=== PATIENT | female | born 1960 | race Caucasian/White ===

== ENCOUNTER → 2017-05-09 | Outpatient (CLI) | payer MEDICARE, OTHER ==
[~2017-05-09] MED LIST: ASPIR 8181 MG PO; AVONEX; BACTRIM DS TAB1 EACH PO; BENADRYL25 MG PO; BETHANECHOL CHL50 MG PO; BISACODYL SUPP10 MG RECTAL; CENTRUM SILVER1 EAC5 PO; CINNAMON PO; CIPROFLOXACIN500 M1 PO; COPAXONE; COPAXONE SUBQ; CRANBERRY500 M1 PO; CURCUMIN PO; FISH OIL 1,001000 M2 PO; FISH OIL 1,001000 MG PO; FLUOXETINE PO; GLYCOLAX POWDER17 G1 PO; HYDROCODON-ACE1 EAC7 PO; HYDROCODON-ACE1 EAC8 PO; HYDROCODONE-AP1 EA11 PO; KEFLEX500 M1 PO; LASIX 20 MG TAB20 MG PO; LINZESS145 MCG PO; LIORESAL 10 MG10 MG PO; MEDROLDOSEPACK PO; MIRALAX17 GM PO; MOVANTIK25 MG PO; MS CONTIN15 MG PO; NABUMETONE 750750 M1 PO; NEURONTIN 300M300 M2 PO; NEURONTIN600 MG PO; NORCO 10-325 T1 EAC1 PO; NORCO 5-325 TA1 EACH PO; NORCO 7.5-3251 EACH PO; OMEPRAZOLE40 MG PO; OXYBUTYNIN 5 MG5 M1 PO; OXYBUTYNIN 5 MG5 M2 PO; PRILOSEC40 MG PO; PRINIVIL5 MG PO; PROVIGIL 100 M100 M1 PO; PROVIGIL 200 M200 MG PO; PROZAC10 MG PO; RED YEAST RICE600 MG PO; REQUIP 1 MG TABL1 M1 PO; REQUIP XL2 MG PO; REQUIP0.5 MG PO; REQUIP1 MG PO; SUPER B COMPLE1 EAC2; SUPER B-COMPLE1 EAC2 PO; TECFIDERA240 MG PO; TRAMADOL 50 MG50 MG PO; TURMERIC PO; VITAMIN D3
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
== END ==
LOC: M.PC 01:33
DX: G35 Multiple sclerosis (principal); M79.2 Neuralgia and neuritis, unspecified; Z79.899 Other long term (current) drug therapy

== ENCOUNTER → 2017-07-11 | Outpatient (CLI) | payer MEDICARE, OTHER ==
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
== END ==
LOC: M.PC 03:58
DX: M79.2 Neuralgia and neuritis, unspecified (principal); G35 Multiple sclerosis; M54.5 Low back pain; M79.604 Pain in right leg; Z79.899 Other long term (current) drug therapy

== ENCOUNTER 2017-08-09 16:34 | Emergency (ER) | payer MEDICARE, OTHER ==
[~2017-08-09] VITALS: Ht 172.7 cm; Wt 99.3 kg
[~2017-08-09 16:34] MED LIST changes: -HYDROCODONE-AP1 EA11 PO; -KEFLEX500 M1 PO; -LASIX 20 MG TAB20 MG PO; -NORCO 5-325 TA1 EACH PO; -OMEPRAZOLE40 MG PO; -OXYBUTYNIN 5 MG5 M2 PO
[2017-08-09 17:16] LABS: ABSOLUTE EOSINOPHILS 0.1 thou/uL (0.0-0.7); ABSOLUTE MONOCYTES 0.4 thou/uL (0.0-1.2); ABSOLUTE NEUTROPHILS 3.1 thou/uL (1.6-8.1); BASOPHILS 0.8 %; EOSINOPHILS 2.7 %; HEMATOCRIT 39.1 % (37.0-47.0); LYMPHOCYTES 21.9 %; MCH 30.9 pg (26.0-34.0); MCHC 33.3 g/dL (28.0-37.0); MCV 92.9 fL (80.0-100.0); MONOCYTES 8.9 %; MPV 9.3 fl. (7.2-11.1); NUCLEATED RBCS 0 /100WBC; PLATELET COUNT* 188 thou/uL (150-400); POLYS 65.7 %; RBC 4.21 mil/uL (4.20-5.00); RDW-CV 13.9 % (10.5-14.5); WBC 4.7 thou/uL (4.0-11.0)
[2017-08-09 17:19] LABS: ANION GAP 5 mmol/L (7-16); BUN 27 mg/dL (7-18); CALCIUM 9.2 mg/dL (8.5-10.1); CHLORIDE 104 mmol/L (98-107); CO2 32 mmol/L (21-32); CREATININE 0.9 mg/dL (0.6-1.3); GLUCOSE 96 mg/dL (70-99); POTASSIUM 3.8 mmol/L (3.5-5.1); SODIUM 141 mmol/L (136-145)
[2017-08-09 17:31] LABS: ALBUMIN 3.5 g/dL (3.4-5.0); ALKALINE PHOSPHATASE 122 U/L (46-116); NT-PRO BRAIN NAT PEPTIDE 85 pg/mL (<300); SGOT 24 U/L (15-37); SGPT 32 U/L (30-65); TOTAL BILIRUBIN 0.3 mg/dL (<0.1-1.0); TOTAL PROTEIN 7.2 g/dL (6.4-8.2); TROPONIN-I LEVEL <0.06 ng/mL (<0.06)
[2017-08-09] MEDS ORDERED: KEFLEX500 M1 PO (20:37)
[2017-08-09] MEDS ORDERED: LASIX 20 MG TAB20 MG PO (20:37)
[2017-08-09 21:20] VITALS: BP 136/73
--- NOTE | 2017-08-10 13:51 | EKG ---
[place] [address] ELECTROCARDIOGRAM REPORT Name: EDWARDO BOOTH [id number] Admission: 08/09/17 Attend Phys: Discharge: 08/09/17 Date of : 60 Report #: [id number] THIS REPORT FOR: //name// [facility] ED Test Date: 2017-08-09 Test Time: 17:14:50 Pat Name: EDWARDO BOOTH Department: Room: Gender: F Dice Maker: Elizabeth FAROOQ : 1960 Requested By: Abbey Preciado Order Number: [id number] MD: Yousif Blair Measurements Intervals Mcgrann Rate: 74 P: 64 FL: 174 QRS: 78 QRSD: 96 T: 59 QT: 385 QTc: 428 Interpretive Statements Sinus rhythm No previous ECG available for comparison Electronically Signed On 08-10-2017 13:51:26 CDT by Yousif Blair [email or web address] <ELECTRONICALLY SIGNED> By: Yousif Blair MD, [facility] 08/10/17 1351 1714 1714 Yousif Blair MD, FACC /EPI
[2017-12-20] MEDS ORDERED: NEURONTIN600 MG PO (08:16)
[2017-12-20] MEDS ORDERED: LASIX 20 MG TAB20 MG PO (08:16)
[2017-12-20] MEDS ORDERED: NABUMETONE 750750 M1 PO (08:16)
[2017-12-20] MEDS ORDERED: KEFLEX500 M1 PO (08:16)
[2017-12-20] MEDS ORDERED: TRAMADOL 50 MG50 MG PO (08:16)
[2017-12-20] MEDS ORDERED: REQUIP 1 MG TABL1 M1 PO (08:16)
[2017-12-20] MEDS ORDERED: HYDROCODONE-AP1 EA11 PO (13:18)
[2017-12-20] MEDS ORDERED: OMEPRAZOLE40 MG PO (13:37)
[2017-12-20] MEDS ORDERED: NORCO 5-325 TA1 EACH PO (13:38)
[2017-12-20] MEDS ORDERED: OXYBUTYNIN 5 MG5 M2 PO (13:38)
== END 2017-08-09 21:21 | disposition home or self-care (01) ==
LOC: M.ERS 16:34
PROVIDERS: Nurse Practitioner Family
DX: L03.115 Cellulitis of right lower limb (principal); R06.00 Dyspnea, unspecified; R60.9 Edema, unspecified

== ENCOUNTER → 2017-08-09 | Outpatient (CLI) | payer MEDICARE, OTHER | LOC: M.ULTRA 11:20 | DX: M79.661 Pain in right lower leg (principal); M79.89 Other specified soft tissue disorders ==

== ENCOUNTER → 2017-12-20 | Outpatient (CLI) | payer MEDICARE, OTHER ==
[~2017-12-20] MED LIST changes: +HYDROCODONE-AP1 EA11 PO; +KEFLEX500 M1 PO; +LASIX 20 MG TAB20 MG PO; +NORCO 5-325 TA1 EACH PO; +OMEPRAZOLE40 MG PO; +OXYBUTYNIN 5 MG5 M2 PO
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
== END ==
LOC: M.PC 02:51
DX: G35 Multiple sclerosis (principal); E11.9 Type 2 diabetes mellitus without complications; F32.9 Major depressive disorder, single episode, unspecified; M41.9 Scoliosis, unspecified; G25.81 Restless legs syndrome; Z86.69 Personal history of other diseases of the nervous system and sense organs; K63.9 Disease of intestine, unspecified

== ENCOUNTER → 2018-04-16 | Outpatient (CLI) | payer OTHER ==
[~2018-04-16] MED LIST changes: +METHENAMINE1 GM PO
--- NOTE | 2018-04-17 09:41 | PAINCON ---
[address] [address] PAIN MANAGEMENT CONSULTATION Name: EDWARDO BOOTHN [facility] Sims#: [id number] Admission: 04/16/18 Attend Phys: Alfredo Buchanan MD Discharge: Date of : 60 Report #: [id number] THIS REPORT FOR: //name// CC: Jazmine Buchanan DATE OF SERVICE: 04/16/2018 CHIEF COMPLAINT: Here for medication. HISTORY: The patient is a 58-year-old female who has been followed in the pain clinic because of chronic pain. As you know, she suffers from neurogenic pain secondary to multiple sclerosis. She has some coaxial back pain. She has been treated with chronic opioid medications. She feels that these medications have been helpful. She feels that gabapentin, tramadol and hydrocodone are beneficial. She has returned today for renewal of her medication. She fell while coming into the pain clinic. States that her wheelchair, has a low hanging support for her feet. These hit the sidewalk and tipped her. She is not injured. She has not sought medical treatment. She recently had some surgery in her mouth. Had some tooth pain in February. This feels to be better at this juncture. Cold weather has caused some problems secondary to the snow and ice that has been experiencing. She feels that the Requip continues to be helpful with her restless legs. She rates her pain as 2/10 at this point. She would like to continue with her medications. ALLERGIES: No known drug allergies. CURRENT MEDICATIONS: Aspirin 81 mg, baclofen 10 mg t.i.d., bethanechol 50 mg, Dulcolax 10 mg suppository at bedtime, cinnamon supplement 1000 mg daily, cranberry 500 mg, Benadryl 25 mg q. 6 hours, fish oil 1000 mg, Prozac 10 mg, Neurontin 600 mg t.i.d., hydrocodone 7.5 mg q.i.d., Linzess 145 mg, Prinivil 5 mg, Provigil 100 mg, multivitamin, Relafen 750 mg b.i.d., GlycoLax powder, red yeast extract, Requip 10 mg, Bactrim-DS 1 tab every 12 hours, tramadol 50 mg q. 6 hours p.r.n., vitamin B complex, Copaxone 3 times weekly, turmeric with curcumin 1 tab. PAIN CLINIC ASSESSMENT/PQRS: 1. Osteoarthritis. The patient is not being treated for osteoarthritis or rheumatoid arthritis. 2. Height 5 feet 8 inches, weight is 212 pounds. 3. Vital Signs: Blood pressure 121/73, heart rate 70, respiratory rate 16, room air saturation is 95% and temperature 97.7. 4. Pain intensity of 2/10. 5. Fall risk. The patient did fall coming into the pain clinic today. She states that she was not hurt. She does use a wheelchair. 6. Blood thinner. The patient is not on a blood [place] [address] PAIN MANAGEMENT CONSULTATION Name: EDWARDO BOOTH Room: [facility]#: [id number] Admission: 04/16/18 Attend Phys: Alfredo Buchanan MD Discharge: Date of : 60 Report #: [id number] 7. Hypertension. The patient is being treated for hypertension. 8. Opioid greater than 6 weeks. The patient receives her medication from one source, [facility]. 9. Risk assessment tool, low for opioid use. 10. Functional assessment tool. 11. Recreational drug use. The patient denies use of recreational drugs. 12. Tobacco: The patient denies use of tobacco. 13. Alcohol: The patient denies use of alcoholic beverages other than on a monthly basis. PHYSICAL EXAMINATION: GENERAL: The patient is a well-developed, well-nourished white female. Appears stated age. She is alert and oriented x 3. Affect is appropriate. Speech is fluent. HEENT: Normocephalic, atraumatic. Extraocular eye muscles intact. Sclerae nonicteric. Mucous membranes are moist. NECK: With reasonably good range of motion. HEART: Regular rate. ABDOMEN: Protuberant, nontender. EXTREMITIES: Upper extremity muscle strength is judged to be 5/5 for the major muscle groups in the upper extremity. Lower extremity muscle strength is judged to be of 4-/5. The patient is able to extend her right leg. She has weakness secondary to multiple sclerosis. IMPRESSION: 1. Multiple sclerosis. 2. Restless legs syndrome. 3. Hypertension. RECOMMENDATIONS: We discussed treatment options with the patient. We will continue with her current medical management. She feels that her medications are helpful. She has had no problem with them. A script for hydrocodone 7.5 mg 1 p.o. q. 4-6 hours, #120 tablets have been written for next 3 months. The patient will continue with gabapentin 600 mg 1 p.o. t.i.d. 3 months of this medication has been provided. Requip 1 tablet t.i.d. 1 mg has been written. Tramadol q. 6 hours p.r.n also been supplied. The patient will call us if she has any concerns. Overall, she feels reasonably happy and things are going reasonably well. We would like to thank you for letting us participate in her care. We hope she continues to improve. <ELECTRONICALLY SIGNED> By: Alfredo Buchanan MD 04/17/18 0941 [id number]. Cy Buchanan MD /nt
== END ==
LOC: M.PC 08:20
DX: G35 Multiple sclerosis (principal); I10 Essential (primary) hypertension; G25.81 Restless legs syndrome; Z79.899 Other long term (current) drug therapy

== ENCOUNTER 2018-04-24 15:47 | Inpatient (IN) | payer OTHER ==
[~2018-04-24] VITALS: Ht 172.7 cm; Wt 100.7 kg
[2018-04-24 16:03] VITALS: BP 116/55
[2018-04-24] MEDS ORDERED: COPAXONE40 MG/1 ML SUBQ (16:11)
[2018-04-24] MEDS ORDERED: PROZAC20 MG PO (16:14)
[2018-04-24 16:50] LABS: ABSOLUTE EOSINOPHILS 0.2 thou/uL (0.0-0.7); ABSOLUTE LYMPHOCYTES 1.1 thou/uL (0.8-5.3); ABSOLUTE MONOCYTES 0.3 thou/uL (0.0-1.2); ABSOLUTE NEUTROPHILS 2.8 thou/uL (1.6-8.1); BASOPHILS 0.6 %; EOSINOPHILS 4.3 %; HEMATOCRIT 39.3 % (37.0-47.0); HEMOGLOBIN 12.9 gm/dL (12.0-15.0); MCH 30.2 pg (26.0-34.0); MCHC 32.9 g/dL (28.0-37.0); MCV 91.8 fL (80.0-100.0); MONOCYTES 7.8 %; NUCLEATED RBCS 0 /100WBC; PLATELET COUNT* 232 thou/uL (150-400); POLYS 63.3 %; RBC 4.28 mil/uL (4.20-5.00); RDW-CV 13.9 % (10.5-14.5); WBC 4.5 thou/uL (4.0-11.0)
[2018-04-24 17:07] LABS: ALBUMIN 3.2 g/dL (3.4-5.0); CALCIUM 9.3 mg/dL (8.5-10.1); CREATININE 0.9 mg/dL (0.6-1.3); MAGNESIUM 2.2 mg/dL (1.8-2.4); POTASSIUM 4.2 mmol/L (3.5-5.1); TOTAL BILIRUBIN 0.2 mg/dL (<0.1-1.0); TOTAL PROTEIN 7.2 g/dL (6.4-8.2)
[2018-04-24 18:40] LABS: URINE BILIRUBIN NEGATIVE (Negative); URINE BLOOD 2+ (Negative); URINE CLARITY CLEAR; URINE COLOR YELLOW; URINE GLUCOSE-RANDOM NEGATIVE (Negative); URINE KETONES NEGATIVE (Negative); URINE PROTEIN TRACE (Negative); URINE UROBILINOGEN 0.2 E.U./dl (0.2-1.0)
[2018-04-24 18:42] LABS: URINE LEUKOCYTES-REFLEX 2+ (Negative); URINE NITRITE-REFLEX POSITIVE (Negative)
[2018-04-24 18:56] LABS: BACTERIA-REFLEX None Seen /HPF (None Seen); CASTS None Seen /LPF (None Seen); CRYSTALS None Seen /LPF (None Seen); SQUAMOUS 0-3 Few /LPF (0-3); URINE RBC None Seen /HPF (0-2); URINE WBC-REFLEX 0-5 Rare /HPF (0-5)
[2018-04-24 19:21] VITALS: BP 116/55
[2018-04-24 19:45] VITALS: BP 137/78
[2018-04-25 05:00] VITALS: BP 105/42
[2018-04-25 05:26] LABS: HEMATOCRIT 38.5 % (37.0-47.0); HEMOGLOBIN 12.8 gm/dL (12.0-15.0); MCH 30.2 pg (26.0-34.0); MCHC 33.2 g/dL (28.0-37.0); MPV 9.1 fl. (7.2-11.1); RBC 4.23 mil/uL (4.20-5.00); RDW-CV 13.8 % (10.5-14.5); WBC 4.7 thou/uL (4.0-11.0)
[2018-04-25 05:52] LABS: CALCIUM 9.4 mg/dL (8.5-10.1); CREATININE 0.8 mg/dL (0.6-1.3); POTASSIUM 3.9 mmol/L (3.5-5.1)
[2018-04-25] MEDS ORDERED: NYAMYC15 GM TOP (07:39)
[2018-04-25 08:15] VITALS: BP 125/68
[2018-04-25] MEDS ORDERED: REQUIP 1 MG TABL1 M1 PO (11:57)
[2018-04-25] MEDS ORDERED: ROPINIROLE HCL2 MG PO (11:58)
[2018-04-25 16:42] VITALS: BP 110/54
[2018-04-25 20:00] VITALS: BP 111/60
[2018-04-26 04:15] LABS: CALCIUM 9.5 mg/dL (8.5-10.1); CREATININE 1.1 mg/dL (0.6-1.3); MAGNESIUM 2.1 mg/dL (1.8-2.4)
[2018-04-26 08:15] VITALS: BP 115/64
[2018-04-26 15:58] VITALS: BP 112/72
[2018-04-26 20:00] VITALS: BP 134/63
[2018-04-27 04:46] LABS: HEMATOCRIT 36.3 % (37.0-47.0); HEMOGLOBIN 12.1 gm/dL (12.0-15.0); MCH 30.1 pg (26.0-34.0); MCHC 33.2 g/dL (28.0-37.0); MCV 90.7 fL (80.0-100.0); MPV 9.5 fl. (7.2-11.1); RDW-CV 13.9 % (10.5-14.5); WBC 8.4 thou/uL (4.0-11.0)
[2018-04-27 05:05] LABS: ALBUMIN 2.9 g/dL (3.4-5.0); CALCIUM 9.3 mg/dL (8.5-10.1); CREATININE 0.9 mg/dL (0.6-1.3); POTASSIUM 3.9 mmol/L (3.5-5.1); TOTAL BILIRUBIN 0.1 mg/dL (<0.1-1.0); TOTAL PROTEIN 6.6 g/dL (6.4-8.2)
[2018-04-27 09:00] VITALS: BP 136/53
[2018-04-27 16:00] VITALS: BP 119/56
[2018-04-27 21:20] VITALS: BP 131/76
[2018-04-28 04:08] LABS: HEMATOCRIT 37.5 % (37.0-47.0); HEMOGLOBIN 12.5 gm/dL (12.0-15.0); MCH 30.3 pg (26.0-34.0); MCHC 33.4 g/dL (28.0-37.0); MCV 90.8 fL (80.0-100.0); RBC 4.14 mil/uL (4.20-5.00); WBC 7.7 thou/uL (4.0-11.0)
[2018-04-28 04:15] LABS: CALCIUM 9.5 mg/dL (8.5-10.1); CREATININE 0.8 mg/dL (0.6-1.3); MAGNESIUM 2.1 mg/dL (1.8-2.4); POTASSIUM 3.9 mmol/L (3.5-5.1)
[2018-04-28 09:39] VITALS: BP 127/71
[2018-04-28 15:27] VITALS: BP 130/77
[2018-04-29 09:00] VITALS: BP 125/76
[2018-04-29 16:00] VITALS: BP 121/60
[2018-04-29 22:00] VITALS: BP 141/75
[2018-04-30 08:20] VITALS: BP 132/78
[2018-04-30 16:45] VITALS: BP 113/62
[2018-04-30 22:30] VITALS: BP 144/77
[2018-05-01 08:10] VITALS: BP 123/58
[2018-05-01 08:13] VITALS: BP 144/77
[2018-05-01 09:42] VITALS: BP 123/58
[2018-05-01] MEDS ORDERED: MIRALAX17 GM PO (10:19)
[2018-05-01] MEDS ORDERED: MEDROL DOSPAK21 TA1 PO (14:39)
--- NOTE | 2018-05-03 10:16 | CON ---
[address] [address] CONSULTATION Name: EDWARDO BOOTH Room: [address] M.R.#: [id number] Admission: 04/24/18 Attend Phys: Sadi Aponte MD Discharge: 05/01/18 Date of : 60 Report #: [id number] THIS REPORT FOR: //name// CC: Sadi Greenberg DATE OF SERVICE: 04/25/2018 HISTORY OF PRESENT ILLNESS: This is a 58-year-old female patient who is well known to me. She has unfortunately severe multiple sclerosis. It has been stable, but several days ago, she started having difficulty with walking and from description, it looks like it is on the left side. She came to Emergency Room. She was evaluated there. She did not have any signs of infection as I understand. She was admitted with the weakness. This has been progressively becoming worst in the last couple of months, but now it has reached a point where her has to help a lot. She used to be on Tecfidera, but her lymphocyte count fell and she switched to Copaxone. REVIEW OF SYSTEMS: Indicate that she has had the MS since 1991. She has a restless leg syndrome. She had a known knee replacement. She has depression. This was the 14-point review of system. PAST MEDICAL HISTORY: Positive for MS. FAMILY HISTORY: Negative for early age stroke. SOCIAL HISTORY: She does not smoke. PHYSICAL EXAMINATION: Indicate she is alert. She is responsive. She has cognitive deficits, which are baseline. She may have a slight right facial palsy. She is weak in the left upper and left lower extremity, rather left lower extremity she barely moves. She said she does have a position sense there. Reflexes if anything is diminished in the lower extremities. Cardiac examinations appear noncontributory. No respiratory difficulty. Blood pressure is 125/68, pulse is 80, temperature is 97.9. LABORATORY DATA: Her white count is 4.7. Kidney function is normal and has always been. IMPRESSION: 1. Relapse of multiple sclerosis. 2. This patient appeared to have significantly progressed [place] [address] CONSULTATION Name: EDWARDO BOOTH Room: [address] [facility]#: [id number] Admission: 04/24/18 Attend Phys: Sadi Aponte MD Discharge: 05/01/18 Date of : 60 Report #: [id number] RECOMMENDATIONS: I discussed with the patient the situation again. I am going to go ahead and get a contrast MRI in this patient. We have avoided contrast in the past because she got contrast multiple times. I did discuss with her that it accumulates in the body, but whether it caused much of bad effects is not clear. She understands that. She wants to proceed with the contrast MRI. If I see enhancing lesion, I will change her disease modifying treatment probably to Gilenya. The problem with that is that it requires a lot of workup before we can start Gilenya and the patient has been reluctant to get that workup done and wanted to go on Copaxone. I will see if she qualifies for rehab because she gets pretty significantly weak and they may have to even train her for fall prevention techniques. We would like to give her steroids, looks like presently she is on 250 q.i.d. of steroids and I would like to give her as a single dose of 1 gram to have a better blood-brain penetration. All of it was discussed with the patient and I discussed the patient with the Emergency Room physician and the nurses. More than 50 minutes of time was spent taking care of this patient and majority of that time was spent counseling and coordinating her care. <ELECTRONICALLY SIGNED> By: Yuniel Raymundo MD 05/03/18 [id number] Raymundo MD /nt
== END 2018-05-01 14:05 | DRG 59 ==
LOC: M.ERS 15:47 → M.ORTHSURG 17:23 → M.TBA-ER 17:23 → M.ORTHSURG 19:27
PROVIDERS: Family Medicine; Physician Assistant; ADMIT Internal Medicine
DX: G35 Multiple sclerosis (principal); G72.81 Critical illness myopathy; E44.1 Mild protein-calorie malnutrition; G51.0 Bell's palsy; G25.81 Restless legs syndrome; F32.9 Major depressive disorder, single episode, unspecified; I10 Essential (primary) hypertension; N30.91 Cystitis, unspecified with hematuria; R73.9 Hyperglycemia, unspecified; E66.01 Morbid (severe) obesity due to excess calories; Z96.651 Presence of right artificial knee joint; Z68.33 Body mass index [BMI] 33.0-33.9, adult; Z98.891 History of uterine scar from previous surgery; Z79.899 Other long term (current) drug therapy

== ENCOUNTER 2018-05-01 10:09 | Inpatient (IN) | payer OTHER ==
[~2018-05-01] VITALS: Ht 172.7 cm; Wt 93.4 kg
[~2018-05-01 10:09] MED LIST changes: +COPAXONE40 MG/1 ML SUBQ; +NYAMYC15 GM TOP; +PROZAC20 MG PO; +ROPINIROLE HCL2 MG PO
[2018-05-01] MEDS ORDERED: MIRALAX17 GM PO (10:19)
[2018-05-01 14:00] VITALS: BP 146/87
[2018-05-01] MEDS ORDERED: MEDROL DOSPAK21 TA1 PO (14:39)
[2018-05-01 19:20] VITALS: BP 126/76
[2018-05-02 04:04] LABS: HEMATOCRIT 39.4 % (37.0-47.0); MCH 30.1 pg (26.0-34.0); MCV 91.3 fL (80.0-100.0); MPV 9.2 fl. (7.2-11.1); NUCLEATED RBCS 0 /100WBC; PLATELET COUNT* 212 thou/uL (150-400); RBC 4.31 mil/uL (4.20-5.00); RDW-CV 13.8 % (10.5-14.5); WBC 10.4 thou/uL (4.0-11.0)
[2018-05-02 04:28] LABS: CALCIUM 8.7 mg/dL (8.5-10.1); CREATININE 0.9 mg/dL (0.6-1.3); POTASSIUM 4.1 mmol/L (3.5-5.1)
[2018-05-02 05:54] LABS: ABSOLUTE LYMPHOCYTES 1.6 thou/uL (0.8-5.3); ABSOLUTE MONOCYTES 0.4 thou/uL (0.0-1.2); ABSOLUTE NEUTROPHILS 8.4 thou/uL (1.6-8.1); ANISOCYTOSIS 1+; PLATELET ESTIMATE ADEQUATE; POIKILOCYTOSIS 1+
[2018-05-02 09:46] VITALS: BP 124/78
[2018-05-02 20:00] VITALS: BP 125/49
[2018-05-03 04:27] LABS: ABSOLUTE EOSINOPHILS 0.1 thou/uL (0.0-0.7); ABSOLUTE LYMPHOCYTES 1.3 thou/uL (0.8-5.3); ABSOLUTE MONOCYTES 0.7 thou/uL (0.0-1.2); ABSOLUTE NEUTROPHILS 8.9 thou/uL (1.6-8.1); BASOPHILS 0.1 %; EOSINOPHILS 0.6 %; HEMATOCRIT 40.7 % (37.0-47.0); HEMOGLOBIN 13.5 gm/dL (12.0-15.0); LYMPHOCYTES 11.7 %; MCH 30.3 pg (26.0-34.0); MCHC 33.2 g/dL (28.0-37.0); MCV 91.1 fL (80.0-100.0); MONOCYTES 6.5 %; MPV 9.5 fl. (7.2-11.1); NUCLEATED RBCS 0 /100WBC; PLATELET COUNT* 232 thou/uL (150-400); POLYS 81.1 %; RBC 4.47 mil/uL (4.20-5.00); RDW-CV 13.7 % (10.5-14.5)
[2018-05-03 08:00] VITALS: BP 102/59
[2018-05-03 12:15] VITALS: BP 104/59
[2018-05-03 20:10] VITALS: BP 94/52
[2018-05-04 04:21] LABS: ABSOLUTE EOSINOPHILS 0.1 thou/uL (0.0-0.7); ABSOLUTE LYMPHOCYTES 1.5 thou/uL (0.8-5.3); ABSOLUTE MONOCYTES 0.8 thou/uL (0.0-1.2); BASOPHILS 0.1 %; EOSINOPHILS 0.9 %; HEMATOCRIT 41.1 % (37.0-47.0); HEMOGLOBIN 13.6 gm/dL (12.0-15.0); LYMPHOCYTES 14.6 %; MCHC 33.2 g/dL (28.0-37.0); MCV 90.6 fL (80.0-100.0); MONOCYTES 7.6 %; MPV 9.8 fl. (7.2-11.1); NUCLEATED RBCS 0 /100WBC; PLATELET COUNT* 242 thou/uL (150-400); POLYS 76.8 %; RDW-CV 14.3 % (10.5-14.5)
[2018-05-04 05:03] LABS: ABSOLUTE NEUTROPHILS 7.8 thou/uL (1.6-8.1); RBC 4.55 mil/uL (4.20-5.00); WBC 10.2 thou/uL (4.0-11.0)
[2018-05-04 06:42] VITALS: BP 104/49
[2018-05-04 07:30] VITALS: BP 107/42
[2018-05-04 20:00] VITALS: BP 112/57
[2018-05-05 08:08] VITALS: BP 102/57
[2018-05-05 20:00] VITALS: BP 158/80
[2018-05-06 07:36] VITALS: BP 91/62
[2018-05-06 20:00] VITALS: BP 108/60
[2018-05-07 07:10] VITALS: BP 109/64
[2018-05-07 20:00] VITALS: BP 115/60
[2018-05-08 08:08] VITALS: BP 98/52
[2018-05-08 19:38] VITALS: BP 108/67
[2018-05-09 08:00] VITALS: BP 115/54
[2018-05-09 09:30] VITALS: BP 123/68
[2018-05-09 20:00] VITALS: BP 114/64
[2018-05-10 08:10] VITALS: BP 97/55
[2018-05-10 10:15] VITALS: BP 114/54
[2018-05-10 19:50] VITALS: BP 119/56
[2018-05-11 04:17] LABS: ABSOLUTE EOSINOPHILS 0.2 thou/uL (0.0-0.7); ABSOLUTE LYMPHOCYTES 1.3 thou/uL (0.8-5.3); ABSOLUTE MONOCYTES 0.5 thou/uL (0.0-1.2); ABSOLUTE NEUTROPHILS 2.6 thou/uL (1.6-8.1); BASOPHILS 0.8 %; EOSINOPHILS 4.2 %; HEMATOCRIT 37.1 % (37.0-47.0); HEMOGLOBIN 12.6 gm/dL (12.0-15.0); LYMPHOCYTES 28.2 %; MCHC 33.9 g/dL (28.0-37.0); MCV 91.5 fL (80.0-100.0); MONOCYTES 11.4 %; MPV 9.5 fl. (7.2-11.1); NUCLEATED RBCS 0 /100WBC; PLATELET COUNT* 155 thou/uL (150-400); POLYS 55.4 %; RBC 4.05 mil/uL (4.20-5.00); RDW-CV 14.1 % (10.5-14.5); WBC 4.7 thou/uL (4.0-11.0)
[2018-05-11 04:33] LABS: CALCIUM 8.6 mg/dL (8.5-10.1); CREATININE 0.8 mg/dL (0.6-1.3); MAGNESIUM 1.9 mg/dL (1.8-2.4); POTASSIUM 4.3 mmol/L (3.5-5.1)
[2018-05-11 07:00] VITALS: BP 102/55
[2018-05-11 19:25] VITALS: BP 126/61
[2018-05-12 07:00] VITALS: BP 111/54
[2018-05-12 20:00] VITALS: BP 111/59
[2018-05-13 07:30] VITALS: BP 97/52
[2018-05-13 09:10] VITALS: BP 125/58
[2018-05-13 20:00] VITALS: BP 112/72
[2018-05-14 07:40] VITALS: BP 108/61
[2018-05-14 20:00] VITALS: BP 106/63
[2018-05-15 10:32] VITALS: BP 110/53
[2018-05-15 22:30] VITALS: BP 95/41
[2018-05-16 08:00] VITALS: BP 116/58
[2018-05-16 20:00] VITALS: BP 124/63
[2018-05-17 09:00] VITALS: BP 106/52
[2018-05-17 22:00] VITALS: BP 96/55
[2018-05-18 07:30] VITALS: BP 100/45
[2018-05-18 20:00] VITALS: BP 100/54
[2018-05-19 08:16] VITALS: BP 108/59
[2018-05-19 20:00] VITALS: BP 98/51
[2018-05-20 07:48] VITALS: BP 114/54
[2018-05-20 20:26] VITALS: BP 119/65
[2018-05-21 19:58] VITALS: BP 127/64
[2018-05-22 07:30] VITALS: BP 97/50
[2018-05-22 20:45] VITALS: BP 99/53
[2018-05-23 07:15] VITALS: BP 93/43
[2018-05-23 20:04] VITALS: BP 151/64
[2018-05-24 07:15] VITALS: BP 99/58
[2018-05-24 17:36] LABS: CALCIUM 9.1 mg/dL (8.5-10.1); CREATININE 0.9 mg/dL (0.6-1.3); POTASSIUM 4.5 mmol/L (3.5-5.1)
[2018-05-24 21:00] VITALS: BP 105/53
[2018-05-25 07:30] VITALS: BP 112/55
[2018-05-25 20:30] VITALS: BP 111/54
[2018-05-26 08:16] VITALS: BP 95/48
[2018-05-26 20:00] VITALS: BP 112/92
[2018-05-27 08:08] VITALS: BP 94/57
[2018-05-27 20:00] VITALS: BP 119/69
[2018-05-28 07:33] VITALS: BP 109/49
[2018-05-28 20:00] VITALS: BP 107/64
[2018-05-29 07:36] VITALS: BP 91/49
[2018-05-29 11:17] VITALS: BP 91/49
[2018-05-29 15:22] VITALS: BP 91/49
[2018-05-29 16:08] VITALS: BP 91/49
[2018-05-29 17:12] VITALS: BP 91/49
== END 2018-05-29 17:42 | disposition home health service (06) | DRG 60 ==
LOC: M.REH 10:09
PROVIDERS: Family Medicine; ADMIT Physical Medicine & Rehabilitation
DX: G35 Multiple sclerosis (principal); I10 Essential (primary) hypertension; G51.0 Bell's palsy; G25.81 Restless legs syndrome; Z96.651 Presence of right artificial knee joint; F32.9 Major depressive disorder, single episode, unspecified; R53.81 Other malaise; R53.1 Weakness; G31.84 Mild cognitive impairment of uncertain or unknown etiology; H16.429 Pannus (corneal), unspecified eye; M21.372 Foot drop, left foot; N31.9 Neuromuscular dysfunction of bladder, unspecified; K59.00 Constipation, unspecified; Z98.891 History of uterine scar from previous surgery; Z79.899 Other long term (current) drug therapy

== ENCOUNTER → 2018-11-14 | Outpatient (CLI) | payer OTHER ==
[~2018-11-14] MED LIST changes: +MEDROL DOSPAK21 TA1 PO
--- NOTE | ~2018-11-14 | PAINCON ---
[facility] [address] [place] [address] PAIN MANAGEMENT CONSULTATION Name: EDWARDO BOOTH Room: [facility] JAQUI Levi#: [id number] Admission: 11/14/18 Attend Phys: Alfredo Buchanan MD Discharge: Date of : 60 Report #: [id number] THIS REPORT FOR: //name// CC: Jazmine Buchanan DATE OF SERVICE: 11/14/2018 CHIEF COMPLAINT: Here for medication renewal. HISTORY: The patient is a 58-year-old female who has been followed in the pain clinic. She suffers from neurogenic pain. She has multiple sclerosis. She also has some coaxial back pain. Has been using opioid medications to help with her pain in the past. Does have some problems with muscle spasms. She is wheelchair bound. Has had some problems with her health. In April, she was admitted to the hospital. She remained in the hospital from 04/24/2018 until 05/29/2018. She has been trying to rehab. Finds that her multiple sclerosis symptoms continue to wax and wane. Notes that her pain is most problematic with heat. She has returned today with hopes of renewing her medications. ALLERGIES: No known drug allergies. CURRENT MEDICATIONS: Aspirin 81 mg, baclofen 10 mg t.i.d., bethanechol 50 mg, Dulcolax 10 mg suppository at bedtime, cinnamon supplement 1000 mg daily, cranberry 500 mg, Benadryl 25 mg q. 6 hours p.r.n., fish oil 1000 mg, Prozac 10 mg, Neurontin 600 mg t.i.d., hydrocodone 7.5 mg 1 p.o. q.i.d., Linzess 145 mg, Prinivil 5 mg, Provigil 100 mg, multivitamins, Relafen 750 mg b.i.d., GlycoLax powder, red yeast extract, Requip 10 mg, Bactrim-DS 1 tablet every 12 hours, tramadol 50 mg q. 6 hours p.r.n., vitamin B complex, copaxone 3 times weekly, turmeric with curcumin 1 tab. PAIN CLINIC ASSESSMENT AND PQRS: 1. Osteoarthritis. The patient is not being treated for osteoarthritis or rheumatoid arthritis. 2. Height 5 feet 8 inches, weight 212 pounds. 3. Vital Signs: Blood pressure is 103/60, heart rate 73, respiratory rate 16, room air saturation 96%, temperature 97.7. 4. Pain intensity 04/28. 5. Fall history: The patient has not fallen in the last 3 months. 6. Blood thinner. The patient is not on a blood thinning medication. 7. Hypertension. The patient is being treated for hypertension. 8. Opioids greater than 6 weeks. The patient received medication from one source, pain clinic. 9. Risk assessment tool. 10. Functional assessment tool. 11. Drug use. [place] [address] PAIN MANAGEMENT CONSULTATION Name: EDWARDO [facility]OTH [id number] Admission: 11/14/18 Attend Phys: Alfredo Buchanan MD Discharge: Date of : 60 Report #: [id number] 12. Tobacco: The patient denies. 13. Alcohol: The patient rarely drinks an alcoholic beverage. PHYSICAL EXAMINATION: GENERAL: The patient is a well-developed white female. She is wheel-chaired. She is accompanied by her , but he is not in the room. HEENT: Normocephalic, atraumatic. Extraocular eye muscles intact. Sclerae nonicteric. Mucous membranes moist. NECK: Without adenopathy. LUNGS: Generally clear to auscultation. EXTREMITIES: Upper extremity muscle decreased, 3+/5. HEART: Regular rate. ABDOMEN: Protuberant. Nontender. EXTREMITIES: Lower extremity muscle strength judged to be 3+/5 for the major muscle groups in the lower extremity. Has weakness secondary to multiple sclerosis. IMPRESSION: 1. Multiple sclerosis. 2. Restless leg syndrome. 3. Hypertension. RECOMMENDATIONS: We discussed treatment options with the patient. At this juncture, we will continue with her current medical regimen. She feels that these medications have been helpful. She has had kind of a bumpy ride. She was hospitalized because of problems as well as had to undergo rehabilitation because of her medical condition. She feels that the gabapentin medication is helpful. Feels that the Relafen medication remains helpful and would like to continue with the hydrocodone and tramadol. The patient would also like to have the Requip medication continued. A script for these medications have all been rewritten. She will call us if she has any concerns. We would like to thank you for letting us participate in her care. We hope she continues to improve. By: [id number]. Cy Buchanan MD /SABI
== END ==
LOC: M.PC 04:51
DX: Z76.0 Encounter for issue of repeat prescription (principal); K74.1 Hepatic sclerosis; G25.81 Restless legs syndrome; I10 Essential (primary) hypertension; Z79.82 Long term (current) use of aspirin; Z79.899 Other long term (current) drug therapy; Z79.891 Long term (current) use of opiate analgesic

== ENCOUNTER → 2019-03-13 | Outpatient (CLI) | payer OTHER ==
--- NOTE | ~2019-03-13 | PAINCON ---
[address] [address] PAIN MANAGEMENT CONSULTATION Name: EDWARDO BOOTH [facility] LIORMaia Sims#: [id number] Admission: 03/13/19 Attend Phys: Alfredo Buchanan MD Discharge: Date of : 60 Report #: [id number] THIS REPORT FOR: //name// CC: Jazmine Pearl DATE OF SERVICE: 03/13/2019 CHIEF COMPLAINT: Chronic nerve pain. HISTORY: The patient is a 59-year-old female who has been followed in the pain clinic. As you may recall, she has a long history of pain. It involves neuropathic pain. She has multiple sclerosis. Notes that her pain involves her back. She does have a new electric chair. She continues to lose muscle strength. She did have home health and found it helpful. Notes that her pain is exacerbated with prolonged sitting in the mornings. Her medications are helpful. Denies any new bowel or bladder problems associated with her medications. ALLERGIES: No known drug allergies. CURRENT MEDICATIONS: Aspirin 81 mg, baclofen 10 mg t.i.d., bethanechol 50 mg, Dulcolax 10 mg suppository at bedtime, cinnamon supplement 1000 mg daily, cranberry 500 mg, Benadryl 25 mg q. 6 hours p.r.n., fish oil 1000 mg, Prozac 10 mg, Neurontin 600 mg t.i.d., hydrocodone 7.5 mg 1 p.o. q.i.d., Linzess 145 mg, Prinivil 5 mg, Provigil 100 mg, multivitamins, Relafen 750 mg b.i.d., GlycoLax powder, red yeast extract, Requip 10 mg, Bactrim-DS 1 tablet q. 12 hours, tramadol 50 mg q. 6 hours p.r.n., vitamin B complex, copaxone 3 times weekly, turmeric with curcumin 1 tablet. PAIN CLINIC ASSESSMENT AND PQRS: 1. Osteoarthritis: The patient is not being treated for osteoarthritis or rheumatoid arthritis. 2. Height 5 feet 8 inches, weight 212 pounds, BMI is to be calculated. 3. Vital Signs: Blood pressure 115/65, heart rate 86, respiratory rate 16, room air saturation 95%, temperature 97.8. 4. Pain intensity: 02/28. 5. Fall history: The patient has not fallen in the last 3 months. 6. Blood thinner: The patient is not on a blood thinning medication. 7. Hypertension: The patient is being treated for hypertension. 8. Opioids: Greater than 6 weeks. 9. The patient receives medication from one source, the pain clinic. 10. Risk assessment tool: Low for opioid use. 11. Functional assessment tool. 12. Recreational drug use: [place] [address] PAIN MANAGEMENT CONSULTATION Name: EDWARDO BOOTH [id number] Admission: 03/13/19 Attend Phys: Alfredo Buchanan MD Discharge: Date of : 60 Report #: [id number] 13. Tobacco: The patient denies. 14. Alcohol: The patient rarely drinks alcoholic beverages. PHYSICAL EXAMINATION: GENERAL: The patient is a well-developed, well-nourished white female. She is in an electric wheelchair. She is accompanied by her son. HEENT: Normocephalic, atraumatic. Extraocular eye muscles intact. Sclerae nonicteric. Mucous membranes are moist. NECK: Without adenopathy. LUNGS: Clear to auscultation. EXTREMITIES: Upper extremity muscle strength 3+/5. Lower extremity muscle strength 3+/5. HEART: Regular rate. ABDOMEN: Nontender. MUSCULOSKELETAL: The patient without significant scoliosis or kyphosis. Has weakness secondary to multiple sclerosis. IMPRESSION: 1. Multiple sclerosis with continuing weakness. 2. Restless leg syndrome. 3. Hypertension. RECOMMENDATIONS: We discussed treatment options with the patient. At this juncture, we will continue with her medications of gabapentin 600 mg 1 p.o. t.i.d. She will also continue with nabumetone 750 mg. She will continue with Requip for restless legs problems. She will also continue with the hydrocodone 7.5 mg. The risk and benefits of her medications again have been discussed with the patient. She is aware that the opioid medications can become less effective over time secondary to development of tolerance. Overall, these medications are helping her engage in activities of daily living with less discomfort. Rates her pain as a 1/10 today. She will also continue with the tramadol q. 4-6 hours p.r.n. The patient will continue with the gabapentin 600 mg 1 p.o. t.i.d. She will monitor her GI tract. Hopefully, she will be able to continue with the Relafen without GI side effects. She will call us if she has any concerns. We would like to thank you for letting us participate in her care. We hope she continues to improve. By: [id number]. Cy Buchanan MD /nt
== END ==
LOC: M.PC 09:30
DX: G35 Multiple sclerosis (principal); I10 Essential (primary) hypertension; G25.81 Restless legs syndrome

== ENCOUNTER → 2020-03-18 | Outpatient (CLI) | payer OTHER | LOC: M.PC 11:30 | PROVIDERS: ATTEND Anesthesiology Pain Medicine | DX: M54.5 Low back pain (principal); I10 Essential (primary) hypertension; R53.1 Weakness; G25.81 Restless legs syndrome ==